=== PATIENT | female | born 1975 | race Caucasian/White ===

== ENCOUNTER 2016-11-26 08:46 | Day surgery (SDC) | payer MEDICAID ==
[~2016-11-26] VITALS: Ht 167.6 cm; Wt 77.1 kg
[2016-11-26 09:07] VITALS: BP 125/70; PULSE 62; RESP 16; TEMP 98.2; O2SAT 99
--- NOTE | 2016-11-26 09:12 | NUR ---
AMBULATED TO BED 7
--- NOTE | 2016-11-26 09:25 | NUR ---
Patient presents to the emergency department with complaints of 10/10 RLQ area pain radiating to l palvic area with n/v x 2 since this morning at approximately 0730 today. pt states taking 2 motrin at 0745 but it is ineffective.
--- NOTE | 2016-11-26 09:32 | NUR ---
LIBBY Patel at bedside examining patient.
[2016-11-26 09:42] LABS: BASOPHILS % (AUTO) 0.2 % (0.0-2.0); HEMATOCRIT 43.5 % (36-48); HEMOGLOBIN 14.4 g/dL (12.0-16.0); LYMPHOCYTES # (AUTO) 2.5 K/uL (1.0-5.5); LYMPHOCYTES % (AUTO) 17.5 % (20.5-51.5); MEAN CORPUSCULAR HEMOGLOBIN 30 pg (27-31); MEAN CORPUSCULAR HGB CONC 33 % (32-36); MEAN CORPUSCULAR VOLUME 89 fL (79.0-98.0); MONOCYTES # (AUTO) 0.6 K/uL (0.0-1.0); MONOCYTES % (AUTO) 4.2 % (1.7-9.3); NEUTROPHILS # (AUTO) 10.9 K/uL (1.8-7.7); NEUTROPHILS % (AUTO) 78.1 % (40.0-70.0); PLATELET COUNT (AUTO) 438 K/uL (130-430); RED BLOOD CELL COUNT(AUTO) 4.86 MIL/uL (4.2-6.2); RED CELL DISTRIBUTION WIDTH 12.2 % (9.0-15.0)
[2016-11-26] MEDS ORDERED: KETOROLAC TROMETHAMINE 30 MG VIAL IVP ONE (09:45)
[2016-11-26] MEDS ORDERED: NACL 0.9% 1,000 ML IV ONE (09:45)
[2016-11-26] MEDS ORDERED: MORPHINE 2 MG/ML INJ. SYRINGE IVP ONE ×2 (09:45→12:45)
[2016-11-26] MEDS ORDERED: IOHEXOL 100 ML IV ONE (09:56)
[2016-11-26] MEDS ORDERED: PROCHLORPERAZINE EDISYLATE 10 MG/2 ML VIAL IVP ONE (10:00)
--- NOTE | 2016-11-26 10:03 | NUR ---
# 20 gauge angiocath placed to L AC. Use of asceptic technique. Opsite placed over site. Blood return noted. Flushed with 10 cc of normal saline. No evidence of infiltration noted. Patient tolerated well.
[2016-11-26 10:04] LABS: CALCIUM 9.4 mg/dL (8.4-11.0); CREATININE 0.68 mg/dL (0.55-1.30); POTASSIUM 3.6 mmol/L (3.5-5.1)
[2016-11-26 10:09] LABS: ALBUMIN 3.8 g/dL (3.4-4.8); TOTAL BILIRUBIN 0.4 mg/dL (0.0-1.0); TOTAL PROTEIN, SERUM 7.9 g/dL (6.4-8.3)
--- NOTE | 2016-11-26 10:17 | NUR ---
medicated pt per md order, nka acknowledged
--- NOTE | 2016-11-26 10:22 | NUR ---
CT consent signed and placed in chart
--- NOTE | 2016-11-26 10:35 | NUR ---
Report and care endorsed to Oralia ARMSTRONG
--- NOTE | 2016-11-26 11:00 | NUR ---
Patient in stable condition, visitor present, no distress noted.
[2016-11-26 11:50] LABS: BILIRUBIN,URINE 1+ (NEGATIVE); BLOOD, URINE 2+ (NEGATIVE); CLARITY/URINE SL HAZY (CLEAR); COLOR,URINE AMBER (YELLOW); GLUCOSE,URINE NEGATIVE (NEGATIVE); KETONES,URINE 1+ (NEGATIVE); LEUKOCYTE ESTERASE ,URINE NEGATIVE (NEGATIVE); NITRITE, URINE NEGATIVE (NEGATIVE); PROTEIN URINE 1+ (NEGATIVE); UROBILINOGEN,URINE 0.2 (0.2-1.0)
[2016-11-26 12:10] LABS: BACTERIA,URINE RARE /HPF (None Seen); WBC,URINE 0-3 /HPF (0-3)
[2016-11-26 12:11] LABS: MUCUS,URINE 1+ /LPF (None Seen)
--- NOTE | 2016-11-26 13:32 | NUR ---
Patient states takes amoxicillin and prednisone at home, states is unsure as to dosages and frequencies and will have someone bring list.
--- NOTE | 2016-11-26 14:30 | NUR ---
Dr. Rich at bedside explaining surgical procedure per patient.
[2016-11-26] MEDS ORDERED: MIDAZOLAM HCL 5 MG/5 ML VIAL IVP ONE (14:46)
[2016-11-26] MEDS ORDERED: METOCLOPRAMIDE HCL 10 MG/2 ML VIAL IVP ONE (14:46)
[2016-11-26] MEDS ORDERED: LR 1,000 ML IV.SOLN IV ONE (14:46)
[2016-11-26] MEDS ORDERED: SEVOFLURANE 15 MIN GAS INH ONE (14:46)
[2016-11-26] MEDS ORDERED: NS IRRIG SOLN 1000 ML IR ONE (14:46)
[2016-11-26] MEDS ORDERED: ROCURONIUM BROMIDE 10 MG/ML (ZEMURON) IV ONE (14:46)
[2016-11-26] MEDS ORDERED: SUCCINYLCHOLINE CHLORIDE 20 MG/ML(QUELICIN) IVP ONE (14:46)
[2016-11-26] MEDS ORDERED: PROPOFOL 200MG/ 20ML VIAL (DIPRIVAN) IV ONE (14:46)
[2016-11-26] MEDS ORDERED: fentaNYL CITRATE/PF 100 MCG/2 ML AMP IVP ONE (14:46)
[2016-11-26 14:48] VITALS: PULSE 70; RESP 16; TEMP 97.8; O2SAT 99
--- NOTE | 2016-11-26 14:48 | NUR ---
Patient taken to OR by tech via gurney, consent signed, stable condition, visitor with patient.
[2016-11-26] MEDS ORDERED: LR 1,000 ML IV ONE (15:34)
[2016-11-26] MEDS ORDERED: NALBUPHINE HCL 10 MG/ML AMP IVP PRN (15:45)
[2016-11-26] MEDS ORDERED: NALOXONE HCL 0.4 MG/ML AMP (NARCAN) IVP PRN (15:45)
[2016-11-26] MEDS ORDERED: ePHEDrine sulfate 50 MG/ML VIAL IVP PRN (15:45)
[2016-11-26] MEDS ORDERED: DIPHENHYDRAMINE INJ 50 MG/ML VIAL IVP PRN (15:45)
[2016-11-26] MEDS ORDERED: fentaNYL CITRATE/PF 100 MCG/2 ML AMP IVP PRN (15:45)
[2016-11-26] MEDS ORDERED: ONDANSETRON HCL 4 MG/2 ML VIAL IVP PRN ×2 (15:45)
[2016-11-26] MEDS ORDERED: MORPHINE SULFATE 10 MG/ML VIAL IVP PRN (16:00)
[2016-11-26] MEDS ORDERED: IBUPROFEN 800 MG TABLET PO PRN (16:00)
[2016-11-26] MEDS ORDERED: OXYCODONE/ACETAMINOPHEN 5-325 TABLET PO PRN ×2 (16:00)
[2016-11-26 16:05] VITALS: BP 102/62
--- NOTE | 2016-11-26 16:45 | NUR ---
Initial Note Received pt from PACU, pt in stable condition, no s/s of distress or sob noted, pt has no c/o pain at this time, pt aaox4, verbal. IV catheter in place and running iv fluids as ordered. Pt has 3 lower abd incisions with dressing clean and dry, vss, 98.6, 102/46, 63, 99% room air, 17. No nausea or vomiting noted. Bed at lowest position, call light within reach, will continue to monitor pt for any changes, fall precautions in place.
--- NOTE | 2016-11-26 16:55 | NUR ---
ICE CHIPS Ice chips given to pt, pt tolerating, will continue to monitor pt for any changes. No nausea or vomiting noted.
--- NOTE | 2016-11-26 17:20 | NUR ---
SANDIP Provided pt with jello, pt ate jello with no signs of vomiting or nausea, tolerated, will continue to monitor pt for any changes.
--- NOTE | 2016-11-26 18:15 | NUR ---
Void Patient void freely without pain or discomfort. Ambulated with staff to bathroom. Scant blood on the chux and pad noted, patient stated her regular period is about this time, denied dysuria.
--- NOTE | 2016-11-26 19:50 | NUR ---
Discharged Notes Pt.discharged to home in stable condition, accompanied by family. Pt.denies pain or any discomfort. Discharge instructions given, pt.verbalized understanding.
== END 2016-11-26 19:50 | disposition home or self-care (01) ==
LOC: SED 08:46 → SDS 13:24
PROVIDERS: ATTEND Obstetrics & Gynecology
DX: N83.53 Torsion of ovary, ovarian pedicle and fallopian tube (principal); N83.209 Unspecified ovarian cyst, unspecified side
CPT/HCPCS: 36415; 58662; 74177; 76856; 80053; 81000; 83690; 85025; 88305; 96361; 96374; 96375; 99285; C1727; J0330; J0780; J1885; J2250; J2270; J2704; J2765; J3010; J7030; J7120; Q9967